=== PATIENT | male | born 1980 | race Caucasian/White ===

== ENCOUNTER 2021-06-24 13:30 | Emergency (ER) | payer MEDICAID ==
[~2021-06-24] VITALS: Ht 165.1 cm; Wt 77.0 kg
[2021-06-24 13:32] VITALS: BP 145/93
== END 2021-06-24 20:20 | disposition left against medical advice (07) ==
LOC: ER 13:30
DX: Z53.21 Procedure and treatment not carried out due to patient leaving prior to being seen by health care provider (principal); R07.9 Chest pain, unspecified
CPT/HCPCS: 93005

== ENCOUNTER 2021-06-25 02:51 | Inpatient (IN) | payer MEDICAID ==
[~2021-06-25] VITALS: Ht 154.9 cm; Wt 77.7 kg
[2021-06-25] MEDS ORDERED: KETOROLAC 30MG/ML VIAL IV STA (03:38)
[2021-06-25] MEDS ORDERED: ONDANSETRON HCL 4MG/2ML INJ IV STA (03:38)
[2021-06-25] MEDS ORDERED: SODIUM CHLORIDE 0.9% 1,000 ML IV ONE (03:45)
[2021-06-25] MEDS ORDERED: FAMOTIDINE 20MG/2ML VIAL IV ONE (03:45)
[2021-06-25 04:07] LABS: BASOPHILS % 1.1 % (0.0-2.0); EOSINOPHILS % 0.7 % (0.0-5.0); HEMOGLOBIN. 16.1 g/dL (14.0-18.0); LYMPHOCYTES % 30.7 % (20.0-50.0); MEAN CORPUSCULAR HEMOGLOBIN 30.5 pg (28.0-32.0); MEAN CORPUSCULAR VOLUME 86.7 fL (80.0-94.0); MEAN PLATELET VOLUME 8.6 fl (7.4-10.4); MONOCYTES % 9.6 % (2.0-8.0); NEUTROPHILS % 57.9 % (40.0-76.0); PLATELET 257 x1000/uL (130-400)
[2021-06-25 04:20] LABS: CLARITY URINE CLEAR (CLEAR); COLOR URINE YELLOW (YELLOW); KETONES URINE TRACE (NEGATIVE); LEUKOCYTE ESTERASE URINE NEGATIVE (NEGATIVE); NITRITE URINE NEGATIVE (NEGATIVE); OCCULT BLOOD URINE NEGATIVE (NEGATIVE); PROTEIN URINE NEGATIVE (NEGATIVE); SPECIFIC GRAVITY URINE 1.016 (1.005-1.030)
[2021-06-25 04:21] LABS: CHLORIDE 101 mEq/L (98-107)
[2021-06-25] MEDS ORDERED: ASPIRIN 81MG TABLET PO ONE (05:15)
[2021-06-25] MEDS ORDERED: DOCUSATE SODIUM 100MG CAPSULE PO PRN (07:15)
[2021-06-25] MEDS ORDERED: ACETAMINOPHEN 325MG TABLET PO PRN ×2 (07:15)
[2021-06-25] MEDS ORDERED: ONDANSETRON HCL 4MG/2ML INJ IV PRN (07:15)
[2021-06-25] MEDS ORDERED: ZOLPIDEM TARTRATE 5MG TABLET PO PRN (07:15)
[2021-06-25] MEDS ORDERED: CLONIDINE 0.1MG TABLET PO PRN (07:15)
[2021-06-25] MEDS ORDERED: KETOROLAC 15MG/ML VIAL IV PRN (07:15)
[2021-06-25] MEDS ORDERED: ENOXAPARIN 40MG/0.4ML SYR SUBCUT SCH (07:15)
[2021-06-25] MEDS ORDERED: IPRATROPIUM/ALBUTEROL 0.5-3(2.5)MG/3ML NEB NEB PRN (07:15)
[2021-06-25] MEDS ORDERED: GUAIFENESIN 200MG/10ML SUGAR FREE UDC PO PRN (07:15)
[2021-06-25] MEDS ORDERED: MAGNESIUM/ALUMINUM HYDROXIDE/SIMETHICONE 30ML UDC PO PRN (07:15)
[2021-06-25] MEDS: SUCRALFATE 1 G/10 ML UDC PO SCH ×4 (07:38→21:48)
[2021-06-25 08:36] LABS: VITAMIN B12 SERUM > 2000.0 pg/mL (211-911)
[2021-06-25] MEDS ORDERED: MULTIVITAMINS,THER W-MINERALS TABLET PO SCH (09:00)
[2021-06-25] MEDS ORDERED: FOLIC ACID 1 MG, THIAMINE HCL 100 MG in SODIUM CHLORIDE 0.9% 1,000 ML IV SCH (09:00)
[2021-06-25] MEDS ORDERED: ENOXAPARIN 30MG/0.3ML SYR SUBCUT SCH (09:00)
[2021-06-25] MEDS: PANTOPRAZOLE SODIUM 40 MG/VIAL IV SCH (10:41)
[2021-06-25] MEDS: ASPIRIN 81MG EC TABLET PO SCH (10:42)
[2021-06-25 11:49] VITALS: BP 151/92
[2021-06-25 12:00] VITALS: BP 153/76
[2021-06-25 16:00] VITALS: BP 128/74
[2021-06-25 16:15] LABS: CREATINE KINASE 134 IU/L (39-308)
[2021-06-25 16:17] LABS: CREATINE KINASE MB FRACTION < 1.0 ng/mL (0.5-3.6)
[2021-06-25 20:00] VITALS: BP 155/88
[2021-06-26] VITALS (8 sets, daily range): BP systolic 118–143; BP diastolic 68–93
[2021-06-26 00:16] LABS: CREATINE KINASE 124 IU/L (39-308)
[2021-06-26 00:17] LABS: CREATINE KINASE MB FRACTION < 1.0 ng/mL (0.5-3.6)
[2021-06-26] MEDS: SUCRALFATE 1 G/10 ML UDC PO SCH ×4 (05:52→20:10)
[2021-06-26 06:26] LABS: CHLORIDE 104 mEq/L (98-107)
[2021-06-26 06:29] LABS: BASOPHILS % 0.9 % (0.0-2.0); EOSINOPHILS % 1.3 % (0.0-5.0); HEMATOCRIT. 46.4 % (42.0-52.0); HEMOGLOBIN. 16.2 g/dL (14.0-18.0); MEAN CORPUSCULAR VOLUME 88.9 fL (80.0-94.0); MEAN PLATELET VOLUME 8.5 fl (7.4-10.4); MONOCYTES % 8.5 % (2.0-8.0); NEUTROPHILS % 56.3 % (40.0-76.0); PLATELET 237 x1000/uL (130-400); RED BLOOD CELL COUNT 5.22 mill/uL (4.7-6.1); RED CELL DISTRIBUTION WIDTH 13.7 % (11.6-14.6)
[2021-06-26 06:32] LABS: PHOSPHORUS 3.8 mg/dL (2.5-4.9)
[2021-06-26] MEDS: PANTOPRAZOLE SODIUM 40 MG/VIAL IV SCH (09:08)
[2021-06-26] MEDS: ASPIRIN 81MG EC TABLET PO SCH (09:08)
[2021-06-26] MEDS: ENOXAPARIN 40MG/0.4ML SYR SUBCUT SCH (09:09)
[2021-06-27] VITALS: BP 117/81
[2021-06-27 04:00] VITALS: BP 110/77
[2021-06-27] MEDS: SUCRALFATE 1 G/10 ML UDC PO SCH ×3 (05:57→16:34)
[2021-06-27 08:00] VITALS: BP 120/81
[2021-06-27] MEDS: PANTOPRAZOLE SODIUM 40 MG/VIAL IV SCH (09:09)
[2021-06-27] MEDS: ENOXAPARIN 40MG/0.4ML SYR SUBCUT SCH (09:09)
[2021-06-27] MEDS: ASPIRIN 81MG EC TABLET PO SCH (09:09)
[2021-06-27 12:00] VITALS: BP 110/64
[2021-06-27 14:04] VITALS: BP 110/64
[2021-06-27 16:00] VITALS: BP 113/64
== END 2021-06-27 16:40 | disposition home or self-care (01) | DRG 243 ==
LOC: ER 02:51 → MICUSO 05:07 → EDBEDREQ 05:10 → ENRESERV 07:33 → 7EST 11:15
PROVIDERS: ADMIT Internal Medicine; ATTEND Internal Medicine
DX: K21.9 Gastro-esophageal reflux disease without esophagitis (principal); K76.0 Fatty (change of) liver, not elsewhere classified; F10.20 Alcohol dependence, uncomplicated; Z71.41 Alcohol abuse counseling and surveillance of alcoholic
CPT/HCPCS: 36415; 71045; 74176; 76705; 80053; 80061; 80320; 81003; 82550; 82553; 82607; 82746; 83036; 83540; 83550; 83735; 83880; 84100; 84484; 85025; 93005; 93306; 93970; 99285; C9113; J1650; J1885; J2405; J3411; J3490; J7030; G0480

== ENCOUNTER 2021-08-29 09:02 | Emergency (ER) | payer SELFPAY ==
[~2021-08-29] VITALS: Ht 160 cm; Wt 77.0 kg
[2021-08-29] MEDS ORDERED: ONDANSETRON HCL 4MG/2ML INJ IV STA (09:29)
[2021-08-29] MEDS ORDERED: FAMOTIDINE 20MG/2ML VIAL IV STA (09:29)
[2021-08-29] MEDS ORDERED: ASPIRIN 81MG TABLET PO ONE (09:30)
[2021-08-29] MEDS ORDERED: SODIUM CHLORIDE 0.9% 1,000 ML IV ONE (09:30)
[2021-08-29 11:20] LABS: EOSINOPHILS % 0.5 % (0.0-5.0); HEMATOCRIT. 50.2 % (42.0-52.0); HEMOGLOBIN. 17.3 g/dL (14.0-18.0); LYMPHOCYTES % 34.9 % (20.0-50.0); MEAN CORPUSCULAR HEMOGLOBIN 29.9 pg (28.0-32.0); MEAN CORPUSCULAR VOLUME 86.6 fL (80.0-94.0); MEAN PLATELET VOLUME 8.5 fl (7.4-10.4); MONOCYTES % 8.4 % (2.0-8.0); NEUTROPHILS % 55.2 % (40.0-76.0); PLATELET 252 x1000/uL (130-400); RED CELL DISTRIBUTION WIDTH 13.9 % (11.6-14.6)
[2021-08-29 11:28] LABS: CHLORIDE 103 mEq/L (98-107)
[2021-08-29 11:32] LABS: ETHANOL BLOOD 90 mg/dL
[2021-08-29 12:40] LABS: *AMPHETAMINES SCREEN URINE NEGATIVE (NEGATIVE); *BARBITURATES SCREEN URINE NEGATIVE (NEGATIVE); *BENZODIAZEPINES SCREEN URINE NEGATIVE (NEGATIVE); *COCAINE SCREEN URINE NEGATIVE (NEGATIVE)
[2021-08-29 12:41] LABS: CANNABINOID URINE SCREEN NEGATIVE (NEGATIVE); METHADONE URINE SCREEN NEGATIVE (NEGATIVE); OPIATES URINE SCREEN NEGATIVE (NEGATIVE); PHENCYCLIDINE URINE SCREEN NEGATIVE (NEGATIVE)
[2021-08-29] MEDS ORDERED: ASPIRIN 81MG TABLET PO NR (13:56)
[2021-08-29] MEDS ORDERED: FAMOTIDINE 20MG/2ML VIAL IV NR (13:57)
[2021-08-29] MEDS ORDERED: ONDA4TAB11 PO (14:16)
[2021-08-29] MEDS ORDERED: OMEP20CA14 MT (14:16)
[2021-08-29 15:00] VITALS: BP 137/79
== END 2021-08-29 15:05 | disposition home or self-care (01) ==
LOC: ER 10:27
DX: R07.89 Other chest pain (principal); R10.11 Right upper quadrant pain; R11.2 Nausea with vomiting, unspecified; R10.13 Epigastric pain; F10.129 Alcohol abuse with intoxication, unspecified; Z79.899 Other long term (current) drug therapy; Y90.4 Blood alcohol level of 80-99 mg/100 ml
CPT/HCPCS: 36415; 71045; 76705; 80053; 80305; 80320; 83690; 84484; 85025; 93005; 96361; 96374; 99285; J3490; J7030; G0480